=== PATIENT | female | born 1975 | race Caucasian/White ===

== ENCOUNTER 2016-05-21 12:54 | Emergency (ER) | payer BC ==
[~2016-05-21 12:54] MED LIST: ADDERALL 30 MG30 MG; BENTYL20 MG PO; ERYTHROMYCIN1 GM; FLUOXETINE HCL40 M1 PO; LEVAQUIN500 M1 PO; NORCO 5-325 TA1 EACH PO; OMEPRAZOLE20 MG PO; OMEPRAZOLE40 M2 PO; PHENERGAN25 M1 PO; SYNTHROID125 MC1 PO; ZOFRAN4 M2 PO
== END 2016-05-21 14:07 | disposition left against medical advice (07) ==
LOC: EDMED 12:54
DX: R22.1 Localized swelling, mass and lump, neck (principal); Z53.21 Procedure and treatment not carried out due to patient leaving prior to being seen by health care provider